=== PATIENT | male | born 1975 | race Hispanic/Latino ===

== ENCOUNTER 2021-01-06 23:13 | Emergency (ER) | payer SELFPAY ==
[2021-01-06] MEDS ORDERED: Sodium Chloride 0.9% 1,000 ML ONE (23:35)
[2021-01-06 23:54] LABS: Hemoglobin 17.2 g/dL (14.0-18.0); Lymphocytes 46 % (21-51); MDiff Complete? YES; Mean Corpuscular HGB CONC 31.8 g/dL (32.0-36.0); Mean Corpuscular Hemoglobin 32.9 pg (27.0-31.0); Mean Corpuscular Volume 103.2 fL (78.0-98.0); Mean Platelet Volume 7.1 fL (7.4-10.4); Monocytes 5 % (0-10); Neutrophil 49 % (42-75); Platelet Count 181 thou/uL (130-400); RBC Distribution Width 12.6 % (11.5-14.5); Red Blood Cell (RBC) Count 5.22 mill/uL (4.70-6.10); White Blood Cell (WBC) Count 10.7 thou/uL (4.8-10.8)
[2021-01-06 23:55] LABS: CRP (Inflammatory) Less than 0.50 mg/dL (= or < 0.5)
[2021-01-06 23:57] LABS: ALT (SGPT) 72 U/L (8-55); AST (SGOT) 52 U/L (5-34); Albumin 4.2 g/dL (3.5-5.0); Alcohol 343 mg/dL (Less than 10); Anion Gap 16 mmol/L (10-20); BUN (Urea Nitrogen) 7 mg/dL (8.9-20.6); Bilirubin, Total 0.5 mg/dL (0.2-1.2); CK (CPK) 472 U/L (30-200); Calc. Creatinine Clearance 0 mL/min (70-130); Calcium 8.8 mg/dL (7.8-10.44); Carbon Dioxide 19 mmol/L (22-29); Chloride 108 mmol/L (98-107); Globulin 3.2 g/dL (2.4-3.5); Glucose 113 mg/dL (70-105); Lipase 53 U/L (8-78); Potassium 3.8 mmol/L (3.5-5.1); Protein, Total 7.4 g/dL (6.0-8.3); Sodium 139 mmol/L (136-145)
[2021-01-07 00:03] LABS: Bilirubin Negative (Negative); Blood, Urine Trace (Negative); Clarity Clear (Clear); Glucose, Urine (Dipstick) Negative (Negative); Ketone, Urine Negative (Negative); Leukocyte Small (Negative); Nitrite Negative (Negative); Protein, Urine (Dipstick) Negative (Neg-Trace); Specific Gravity, Urine 1.004 (1.002-1.036); Urobilinogen 0.2 mg/dL (Less than 2); pH, Urine 5.5 (5.0-9.0)
[2021-01-07 00:12] LABS: RBC/HPF None Seen HPF (0-3); Squamous Epithelial 0-3 HPF (0-3); WBC/HPF 0-3 HPF (0-3)
[2021-01-07 00:18] LABS: Alkaline Phosphatase 90 U/L (40-110)
[2021-01-07 00:21] LABS: Amphetamine Not Detected (NotDetected); Barbiturates Screen Not Detected (NotDetected); Benzodiazepine Screen Not Detected (NotDetected); Cocaine Metabolite Screen Not Detected (NotDetected); Medtox Control Line Valid? VALID (VALID); Methadone Not Detected (NotDetected); Methamphetamine Not Detected (NotDetected); Opiate Screen Not Detected (NotDetected); Oxycodone Screen Not Detected (NotDetected); Phencyclidine (PCP) Not Detected (NotDetected); THC/Cannabinoid Screen Not Detected (NotDetected); Tricyclic Screen Not Detected (NotDetected)
[2021-01-07 00:26] LABS: CKMB 2.8 ng/mL (0-6.6)
== END 2021-01-07 00:33 | disposition left against medical advice (07) ==
LOC: MADERS 23:13
DX: R07.89 Other chest pain (principal); K70.30 Alcoholic cirrhosis of liver without ascites; E86.0 Dehydration; F10.129 Alcohol abuse with intoxication, unspecified; Y90.8 Blood alcohol level of 240 mg/100 ml or more; E11.9 Type 2 diabetes mellitus without complications; I10 Essential (primary) hypertension; F17.210 Nicotine dependence, cigarettes, uncomplicated
CPT/HCPCS: 71045; 80053; 80306; 80307; 81003; 81015; 82150; 82550; 82553; 83690; 84484; 85025; 86140; 93005; J7050

== ENCOUNTER 2021-04-03 11:10 | Emergency (ER) | payer SELFPAY ==
[2021-04-03] MEDS ORDERED: Lactated Ringer's 1,000 ML ONE ×2 (11:56→12:51)
[2021-04-03] MEDS ORDERED: Insulin Regular 300 UNITS/3 ML VIAL ONE (11:56)
[2021-04-03 12:05] LABS: #Basophils 0.1 thou/uL (0.0-0.2); #Lymphocytes 1.9 thou/uL (1.20-3.40); #Monocytes 0.8 thou/uL (0.11-0.59); #Neutrophils 7.3 thou/uL (1.40-6.50); %Eosinophils 0.4 % (0.0-10.0); %Lymphocytes 18.6 % (21.0-51.0); %Monocytes 7.5 % (0.0-10.0); %Neutrophils 72.6 % (42.0-75.0); Hemoglobin 16.9 g/dL (14.0-18.0); Mean Corpuscular HGB CONC 32.6 g/dL (32.0-36.0); Mean Corpuscular Hemoglobin 32.6 pg (27.0-31.0); Mean Platelet Volume 7.4 fL (7.4-10.4); Platelet Count 232 thou/uL (130-400); RBC Distribution Width 12.1 % (11.5-14.5)
[2021-04-03 12:18] LABS: ALT (SGPT) 110 U/L (8-55); AST (SGOT) 75 U/L (5-34); Albumin 4.3 g/dL (3.5-5.0); Alkaline Phosphatase 106 U/L (40-110); Anion Gap 25 mmol/L (10-20); BUN (Urea Nitrogen) 16 mg/dL (8.9-20.6); Bilirubin, Total 1.2 mg/dL (0.2-1.2); Calc. Creatinine Clearance 0 mL/min (70-130); Carbon Dioxide 12 mmol/L (22-29); Chloride 96 mmol/L (98-107); Globulin 3.3 g/dL (2.4-3.5); Glucose 503 mg/dL (70-105); Potassium 4.2 mmol/L (3.5-5.1); Protein, Total 7.6 g/dL (6.0-8.3); Sodium 129 mmol/L (136-145)
[2021-04-03] MEDS ORDERED: NS 0.9% w/ 20 MEQ KCL 1,000 ML ONE ×2 (12:58→14:42)
[2021-04-03] MEDS ORDERED: Sodium Chloride 0.9% 100 ML ONE (12:58)
[2021-04-03 13:33] LABS: Lipase 67 U/L (8-78); Magnesium 1.8 mg/dL (1.6-2.6)
[2021-04-03 13:33] LABS: Base Excess-Venous -10.9 mmol/L (-2.0 to 3.0); Bicarbonate (HCO3v) 14.2 mmol/L (22.0-28.0); CO2 Tension (PvCO2) 29.9 mmHg (42.0-51.0); Calcium, Ionized 1.18 mmol/L (1.15-1.33); Chloride 106 mmol/L (98-107); Hemoglobin - Calc 17.2 g/dL (14.0-18.0); Potassium 4.1 mmol/L (3.5-5.1); Sodium 131 mmol/L (138-145); T. Carbon Dioxide 15.1 mmol/L (22.0-28.0); vO2 Saturation-calc 98.4 % (60.0-85.0)
[2021-04-03 13:41] LABS: Bilirubin Negative (Negative); Blood, Urine Negative (Negative); Clarity Hazy (Clear); Glucose, Urine (Dipstick) >=1000 mg/dL (Negative); Ketone, Urine > or equal to 80 mg/dL (Negative); Leukocyte Negative (Negative); Nitrite Positive (Negative); Protein, Urine (Dipstick) Trace mg/dL (Neg-Trace); Urobilinogen 0.2 mg/dL (Less than 2)
[2021-04-03 13:45] LABS: SARS-CoV-2 NAA Rapid Test Not Detected (NotDetected)
[2021-04-03 13:46] LABS: Bacteria/HPF 3+ HPF (None Seen); RBC/HPF None Seen HPF (0-3); Squamous Epithelial 0-3 HPF (0-3)
[2021-04-03] MEDS ORDERED: D5 1/2 NS w/20 mEq KCL 1,000 ML ONE (15:05)
== END 2021-04-03 14:53 | disposition short-term general hospital (02) ==
LOC: EDBD 11:10 → MADERS 11:10
DX: E11.10 Type 2 diabetes mellitus with ketoacidosis without coma (principal); N17.9 Acute kidney failure, unspecified; I10 Essential (primary) hypertension; F17.210 Nicotine dependence, cigarettes, uncomplicated; Z79.84 Long term (current) use of oral hypoglycemic drugs
CPT/HCPCS: 36416; 80053; 81003; 81015; 82010; 82330; 82803; 83690; 83735; 84100; 85025; 96365; 36415-59; J1815; J3480; J3490; J7120; U0002

== ENCOUNTER 2021-08-01 14:33 | Emergency (ER) | payer SELFPAY ==
[2021-08-01 15:13] LABS: #Basophils 0.1 thou/uL (0.0-0.2); #Lymphocytes 1.5 thou/uL (1.20-3.40); #Monocytes 1.1 thou/uL (0.11-0.59); #Neutrophils 7.6 thou/uL (1.40-6.50); %Basophils 0.8 % (0.0-1.0); %Eosinophils 0.2 % (0.0-10.0); %Lymphocytes 14.8 % (21.0-51.0); %Monocytes 10.7 % (0.0-10.0); %Neutrophils 73.4 % (42.0-75.0); Hemoglobin 17.3 g/dL (14.0-18.0); Mean Corpuscular Hemoglobin 34.1 pg (27.0-31.0); Mean Corpuscular Volume 103.3 fL (78.0-98.0); Mean Platelet Volume 10.9 fL (7.4-10.4); Platelet Count 162 thou/uL (130-400); RBC Distribution Width 11.5 % (11.5-14.5); Red Blood Cell (RBC) Count 5.07 mill/uL (4.70-6.10); White Blood Cell (WBC) Count 10.3 thou/uL (4.8-10.8)
[2021-08-01 15:27] LABS: Macrocytosis SLIGHT = 6-15 cells (100X) (0-5/hpf)
[2021-08-01 15:30] LABS: ALT (SGPT) 58 U/L (8-55); AST (SGOT) 47 U/L (5-34); Albumin 4.5 g/dL (3.5-5.0); Alkaline Phosphatase 90 U/L (40-110); Anion Gap 26 mmol/L (10-20); BUN (Urea Nitrogen) 35 mg/dL (8.9-20.6); Bilirubin, Total 1.5 mg/dL (0.2-1.2); Calc. Creatinine Clearance 0 mL/min (70-130); Calcium 10.2 mg/dL (7.8-10.44); Carbon Dioxide 17 mmol/L (22-29); Chloride 94 mmol/L (98-107); Globulin 3.2 g/dL (2.4-3.5); Glucose 396 mg/dL (70-105); Lipase 88 U/L (8-78); Magnesium 1.8 mg/dL (1.6-2.6); Protein, Total 7.7 g/dL (6.0-8.3); Sodium 133 mmol/L (136-145)
[2021-08-01 15:34] LABS: Base Excess-Venous -4.6 mmol/L (-2.0 to 3.0); Bicarbonate (HCO3v) 18.6 mmol/L (22.0-28.0); CO2 Tension (PvCO2) 30.3 mmHg (42.0-51.0); Chloride 100 mmol/L (98-107); Hemoglobin - Calc 19.9 g/dL (14.0-18.0); Sodium 131 mmol/L (138-145); T. Carbon Dioxide 19.5 mmol/L (22.0-28.0); vO2 Saturation-calc 99.8 % (60.0-85.0)
[2021-08-01] MEDS ORDERED: Sodium Chloride 0.9% 1,000 ML ONE (15:51)
[2021-08-01 16:10] LABS: CKMB 3.1 ng/mL (0-6.6)
[2021-08-01 16:21] LABS: Acetaminophen Less than 10.0 mcg/mL (10.0-30.0); Alcohol Less than 10 mg/dL (Less than 10); Salicylate Less than 8.0 mg/dL (15.0-30.0)
[2021-08-01] MEDS ORDERED: Sodium Chloride 0.9% 100 ML ONE (17:19)
[2021-08-01] MEDS ORDERED: Azithromycin 500 MG VIAL ONE (17:19)
[2021-08-01] MEDS ORDERED: Sodium Chloride 0.9% 250 ML 250 ML ONE (17:19)
[2021-08-01] MEDS ORDERED: cefTRIAXone\\ROCEPHIN 1 GM VIAL ONE (17:19)
[2021-08-01] MEDS ORDERED: Sodium Chloride 0.9% 500 ML ONE (17:19)
[2021-08-01 17:55] LABS: Bilirubin Negative (Negative); Blood, Urine Small (Negative); Glucose, Urine (Dipstick) >=1000 mg/dL (Negative); Ketone, Urine 40 mg/dL (Negative); Leukocyte Negative (Negative); Nitrite Positive (Negative); Protein, Urine (Dipstick) 30 mg/dL (Neg-Trace); Urobilinogen 0.2 mg/dL (Less than 2); pH, Urine 5.5 (5.0-9.0)
[2021-08-01 18:15] LABS: Bacteria/HPF 3+ HPF (None Seen); Clarity Hazy (Clear); Mucous/LPF 1+ LPF (<2+); RBC/HPF 0-3 HPF (0-3); Squamous Epithelial 0-3 HPF (0-3)
[2021-08-01 18:21] LABS: Amphetamine Not Detected (NotDetected); Barbiturates Screen Not Detected (NotDetected); Benzodiazepine Screen Not Detected (NotDetected); Cocaine Metabolite Screen Not Detected (NotDetected); Methadone Not Detected (NotDetected); Methamphetamine Not Detected (NotDetected); Opiate Screen Not Detected (NotDetected); Oxycodone Screen Not Detected (NotDetected); Phencyclidine (PCP) Not Detected (NotDetected); THC/Cannabinoid Screen Not Detected (NotDetected); Tricyclic Screen Not Detected (NotDetected)
[2021-08-01 18:22] LABS: Medtox Control Line Valid? VALID (VALID)
== END 2021-08-01 19:33 | disposition short-term general hospital (02) ==
LOC: MADERS 14:33
DX: E11.65 Type 2 diabetes mellitus with hyperglycemia (principal); N17.9 Acute kidney failure, unspecified; N39.0 Urinary tract infection, site not specified; R77.8 Other specified abnormalities of plasma proteins; I10 Essential (primary) hypertension; F17.210 Nicotine dependence, cigarettes, uncomplicated; Z87.19 Personal history of other diseases of the digestive system; Z79.84 Long term (current) use of oral hypoglycemic drugs; Z79.899 Other long term (current) drug therapy
CPT/HCPCS: 36416; 71045; 80053; 80306; 80307; 81003; 81015; 82010; 82330; 82553; 82803; 83605; 83690; 83735; 83880; 84484; 85014; 85025; 87077; 87086; 87186; 93005; 94760; J0456; J0696; J3490; J7030; J7050

== ENCOUNTER 2022-04-15 17:33 | Emergency (ER) | payer SELFPAY ==
[2022-04-15] MEDS ORDERED: Bacitracin 1 PK ONE (18:04)
== END 2022-04-15 18:28 | disposition home or self-care (01) ==
LOC: MADERS 17:33
DX: S30.811A Abrasion of abdominal wall, initial encounter (principal); L03.311 Cellulitis of abdominal wall; E11.9 Type 2 diabetes mellitus without complications; I10 Essential (primary) hypertension; F17.210 Nicotine dependence, cigarettes, uncomplicated; Z79.899 Other long term (current) drug therapy; X58.XXXA Exposure to other specified factors, initial encounter
CPT/HCPCS: 99283

== ENCOUNTER 2022-07-16 17:44 | Emergency (ER) | payer SELFPAY ==
[~2022-07-16 17:44] MED LIST: Iopamidol 370 76% 100 ML VIAL ONE
[2022-07-16] MEDS ORDERED: Lactated Ringer's 1,000 ML ONE ×2 (18:08→18:58)
[2022-07-16 18:23] LABS: #Basophils 0.1 thou/uL (0.0-0.2); #Eosinphils 0.1 thou/uL (0.0-0.7); #Monocytes 0.7 thou/uL (0.11-0.59); #Neutrophils 5.6 thou/uL (1.40-6.50); %Basophils 1.4 % (0.0-1.0); %Eosinophils 0.8 % (0.0-10.0); %Lymphocytes 23.3 % (21.0-51.0); %Monocytes 8.5 % (0.0-10.0); Hemoglobin 17.5 g/dL (14.0-18.0); MDiff Complete? YES; Macrocytosis SLIGHT = 6-15 cells (100X) (0-5/hpf); Mean Corpuscular HGB CONC 32.6 g/dL (32.0-36.0); Mean Corpuscular Hemoglobin 34.6 pg (27.0-31.0); Mean Platelet Volume 10.2 fL (7.4-10.4); Platelet Count 182 10x3/uL (130-400); Platelet Morphology Comment Appears Adequate; RBC Distribution Width 12.6 % (11.5-14.5); Red Blood Cell (RBC) Count 5.06 mill/uL (4.70-6.10); White Blood Cell (WBC) Count 8.5 10x3/uL (4.8-10.8)
[2022-07-16 18:31] LABS: Base Excess-Venous -4.4 mmol/L (-2.0 to 3.0); Bicarbonate (HCO3v) 18.2 mmol/L (22.0-28.0); CO2 Tension (PvCO2) 28.8 mmHg (42.0-51.0); Calcium, Ionized 1.06 mmol/L (1.15-1.33); Chloride 100 mmol/L (98-107); Hemoglobin - Calc 20.6 g/dL (14.0-18.0); Sodium 128 mmol/L (138-145); T. Carbon Dioxide 19.1 mmol/L (22.0-28.0); vO2 Saturation-calc 97.9 % (60.0-85.0)
[2022-07-16 18:33] LABS: ALT (SGPT) 164 U/L (8-55); AST (SGOT) 111 U/L (5-34); Albumin 4.4 g/dL (3.5-5.0); Alkaline Phosphatase 103 U/L (40-110); Anion Gap 21 mmol/L (10-20); BUN (Urea Nitrogen) 21 mg/dL (8.9-20.6); Bilirubin, Total 1.1 mg/dL (0.2-1.2); Calc. Creatinine Clearance 0 mL/min (70-130); Calcium 9.6 mg/dL (7.8-10.44); Carbon Dioxide 17 mmol/L (22-29); Chloride 95 mmol/L (98-107); Estimated GFR 51; Globulin 3.3 g/dL (2.4-3.5); Lipase 196 U/L (8-78); Magnesium 1.8 mg/dL (1.6-2.6); Potassium 4.3 mmol/L (3.5-5.1); Protein, Total 7.7 g/dL (6.0-8.3); Sodium 129 mmol/L (136-145)
[2022-07-16 18:42] LABS: Glucose 424 mg/dL (70-105)
[2022-07-16] MEDS ORDERED: INSULIN REGULAR IN 0.9 % NACL 100 UNIT/100 ML BAG ONE (18:48)
[2022-07-16] MEDS ORDERED: Dicyclomine 10 MG CAP ONE (18:50)
[2022-07-16 19:04] LABS: Bilirubin Negative (Negative); Blood, Urine Trace (Negative); Glucose, Urine (Dipstick) >=1000 mg/dL (Negative); Ketone, Urine 40 mg/dL (Negative); Leukocyte Trace (Negative); Nitrite Positive (Negative); Protein, Urine (Dipstick) Negative (Neg-Trace); Urobilinogen 0.2 mg/dL (Less than 2); pH, Urine 5.5 (5.0-9.0)
[2022-07-16 19:06] LABS: Clarity Hazy (Clear)
[2022-07-16 19:10] LABS: Bacteria/HPF 4+ HPF (None Seen); RBC/HPF 0-3 HPF (0-3); Squamous Epithelial 0-3 HPF (0-3)
[2022-07-16] MEDS ORDERED: NS 0.9% w/ 20 MEQ KCL 1,000 ML ONE (19:56)
[2022-07-16 20:18] LABS: Phosphorus 1.8 mg/dL (2.3-4.7)
[2022-07-16] MEDS ORDERED: Morphine 4 MG/ML VIAL ONE (20:18)
== END 2022-07-16 21:03 | disposition short-term general hospital (02) ==
LOC: MADERS 17:44
DX: E11.10 Type 2 diabetes mellitus with ketoacidosis without coma (principal); E11.65 Type 2 diabetes mellitus with hyperglycemia; N17.9 Acute kidney failure, unspecified; R82.71 Bacteriuria; K76.0 Fatty (change of) liver, not elsewhere classified; E83.39 Other disorders of phosphorus metabolism; K85.90 Acute pancreatitis without necrosis or infection, unspecified; R74.01 Elevation of levels of liver transaminase levels; I10 Essential (primary) hypertension; E78.00 Pure hypercholesterolemia, unspecified; F17.210 Nicotine dependence, cigarettes, uncomplicated; Z79.4 Long term (current) use of insulin; Z79.84 Long term (current) use of oral hypoglycemic drugs; Z79.899 Other long term (current) drug therapy
CPT/HCPCS: 36415; 36416; 74177; 80053; 81003; 81015; 82010; 82330; 82435; 82550; 82803; 83605; 83690; 83735; 83930; 84100; 84132; 84295; 85014; 85025; 87040; 87077; 87086; 93005; 94760; 96361; 96365; 96366; 96375; J1815; J2270; J3480; J7120; Q9967

== ENCOUNTER 2024-03-26 13:10 | Emergency (ER) | payer SELFPAY ==
[2024-03-26] MEDS ORDERED: Sodium Chloride 0.9% 1,000 ML ONE (13:28)
[2024-03-26] MEDS ORDERED: Morphine 2 MG/ML VIAL ONE (13:28)
[2024-03-26] MEDS ORDERED: Aspirin Chewable 81 MG TAB ONE (13:28)
[2024-03-26] MEDS ORDERED: Insulin Regular, Human 100 UNIT/ML 10 ML VIAL ONE (13:57)
[2024-03-26] MEDS ORDERED: INSULIN REGULAR IN 0.9 % NACL 100 ML ONE (13:57)
[2024-03-26 14:00] LABS: Hematocrit 54.6 % (42.0-52.0); Hemoglobin 16.7 g/dL (14.0-18.0); Mean Corpuscular HGB CONC 30.7 g/dL (32.0-36.0); Mean Corpuscular Hemoglobin 34.5 pg (27.0-31.0); Mean Corpuscular Volume 112.7 fl (78.0-98.0); Mean Platelet Volume 7.5 fL (7.4-10.4); Platelet Count 189 10x3/uL (130-400); RBC Distribution Width 12.9 % (11.5-14.5); Red Blood Cell (RBC) Count 4.84 mill/uL (4.70-6.10); White Blood Cell (WBC) Count 11.4 10x3/uL (4.8-10.8)
[2024-03-26 14:01] LABS: ALT (SGPT) 51 U/L (8-55); AST (SGOT) 42 U/L (5-34); Albumin 4.8 g/dL (3.5-5.0); Alkaline Phosphatase 122 U/L (40-110); BUN (Urea Nitrogen) 26 mg/dL (8.9-20.6); Bilirubin, Total 0.5 mg/dL (0.2-1.2); Calc. Creatinine Clearance 0 mL/min (70-130); Chloride 99 mmol/L (98-107); Estimated GFR 37; Globulin 3.6 g/dL (2.4-3.5); Glucose 391 mg/dL (70-105); Magnesium 2.1 mg/dL (1.6-2.6); Potassium 4.9 mmol/L (3.5-5.1); Protein, Total 8.4 g/dL (6.0-8.3); Sodium 135 mmol/L (136-145); Troponin I Less than 0.010 ng/mL (< 0.028)
[2024-03-26 14:03] LABS: Bicarbonate (HCO3v) 5.9 mmol/L (22.0-28.0); CO2 Tension (PvCO2) 30.7 mmHg (42.0-51.0); Calcium, Ionized 1.13 mmol/L (1.15-1.33); Chloride 108 mmol/L (98-107); Hemoglobin - Calc 20.2 g/dL (14.0-18.0); Potassium 4.9 mmol/L (3.5-5.1); Sodium 130 mmol/L (138-145); T. Carbon Dioxide 6.8 mmol/L (22.0-28.0); vO2 Saturation-calc 67.7 % (60.0-85.0)
[2024-03-26 14:05] LABS: MDiff Complete? YES; Manual Diff?? YES; Neutrophil 71 % (42-75)
[2024-03-26 14:06] LABS: Anisocytosis SLIGHT = 6-15 cells (100X) (0-5/hpf); Band 4 % (5-11); Lymphocytes 22 % (21-51); Macrocytosis SLIGHT = 6-15 cells (100X) (0-5/hpf); Monocytes 3 % (0-10); Platelet Adequacy Comment Appears Adequate
[2024-03-26 14:12] LABS: Carbon Dioxide Less than 8 mmol/L (22-29)
[2024-03-26 14:19] LABS: Phosphorus 5.2 mg/dL (2.3-4.7)
[2024-03-26 14:34] LABS: Lipase 1225 U/L (8-78)
[2024-03-26 14:36] LABS: Critical Call Chemistry CALLED NUR.CMA@1411
[2024-03-26 16:12] LABS: Bilirubin Small (Negative); Blood, Urine Small (Negative); Clarity Cloudy (Clear); Glucose, Urine (Dipstick) 500 mg/dL (Negative); Ketone, Urine > or equal to 80 mg/dL (Negative); Leukocyte Small (Negative); Nitrite Negative (Negative); Protein, Urine (Dipstick) 100 mg/dL (Neg-Trace); Urobilinogen 0.2 mg/dL (Less than 2); pH, Urine 5.5 (5.0-9.0)
[2024-03-26 16:19] LABS: Amphetamine Not Detected (NotDetected); Barbiturates Screen Not Detected (NotDetected); Benzodiazepine Screen Not Detected (NotDetected); Cocaine Metabolite Screen Not Detected (NotDetected); Methadone Not Detected (NotDetected); Methamphetamine Not Detected (NotDetected); Opiate Screen Detected (NotDetected); Oxycodone Screen Not Detected (NotDetected); Phencyclidine (PCP) Not Detected (NotDetected); THC/Cannabinoid Screen Not Detected (NotDetected); Tricyclic Screen Not Detected (NotDetected)
[2024-03-26 16:26] LABS: Bacteria/HPF Rare-Few HPF (None Seen); CAUTI Indications for Culture Alt mental st,lethar; RBC/HPF 0-3 HPF (0-3); Squamous Epithelial 0-3 HPF (0-3); WBC/HPF Greater Than 50 HPF (0-3)
[2024-03-26 16:27] LABS: Urine Culture Reflex Yes Yes
== END 2024-03-26 16:30 | disposition short-term general hospital (02) ==
LOC: MADERS 13:10
DX: E11.10 Type 2 diabetes mellitus with ketoacidosis without coma (principal); K85.90 Acute pancreatitis without necrosis or infection, unspecified; R07.89 Other chest pain; F17.210 Nicotine dependence, cigarettes, uncomplicated; E11.9 Type 2 diabetes mellitus without complications; I10 Essential (primary) hypertension; Z55.6 Problems related to health literacy; Z79.4 Long term (current) use of insulin; Z79.84 Long term (current) use of oral hypoglycemic drugs; Z79.899 Other long term (current) drug therapy
CPT/HCPCS: 36415; 36416; 71045; 80053; 80306; 81001; 82010; 82330; 82435; 82803; 83605; 83690; 83735; 83880; 84100; 84132; 84295; 84484; 85014; 85025; 87040; 87077; 87086; 87186; 93005; 94760; 96365; 96366; 96375; 96376; J1815; J2272; J7030